=== PATIENT | male | born 1970 | race Caucasian/White ===

== ENCOUNTER 2023-09-20 01:09 | Day surgery (SDC) | payer BC, SELFPAY ==
[2023-09-04 15:11] VITALS: BMI 25.8
[2023-09-20 08:54] VITALS: BP 113/88; PULSE 101; RESP 20; TEMP 36.5; O2SAT 100; BMI 25.5
[2023-09-20] MEDS: LACTATED RINGERS 1,000 ML 150 ML IV CONT (08:58)
--- NOTE | 2023-09-20 09:05 | P.PNAN_ITS ---
Anes - Initial Pre Proc Eval Procedure: Operation Date: 09/20/23 10:00 Proposed Procedures p Colonoscopy - Gabriel Butt MD Date/Time: 09/20/23 09:05 Surgeon: Gabriel Butt MD Pre Op Diagnosis: fam hx malignant neoplasm of digestive organs Patient Data Age: 52 Gender: M Height: 1.8 m Weight: 83.1 kg Last Vital Signs Temp 97.7 F 09/20/23 08:54 Pulse 101 H 09/20/23 08:54 Resp 20 09/20/23 08:54 BP 113/88 09/20/23 08:54 Pulse Ox 100 09/20/23 08:54 O2 Del Method Room Air 09/20/23 08:54 Allergies Allergy/AdvReac Type Severity Reaction Status Date / Time No Known Allergies Allergy Verified 09/20/23 08:52 Home Medications Medication Instructions Recorded Confirmed Type rosuvastatin 10 mg tablet 10 mg PO DAILY 09/04/23 09/20/23 History thyroid (pork) 15 mg tablet 15 mg PO DAILY 09/04/23 09/20/23 History ([place] Thyroid) Patient hx anesthesia problems: none Family hx anesthesia problems: none Results Review: All pre-operative results and documents have been reviewed as part of the pre- operative evaluation. [facility] Social History Social History Smoking status: Never smoker Alcohol intake: never Substance use: never Substance use type: does not use Living arrangements: with family Spiritual care concerns: No Anes - Eval Final PreProcedure Day of Procedure 09/20/23 09:05 Patient weight: normal Heart: regular rate and rhythm Lungs: clear to auscultation Airway: Mallampati scale class II Neurological: alert and oriented Last oral intake: >/= 8 hours ASA classification: II Emergent: no Anesthetic plan: proceed Anesthesia type and monitoring: general GIVS and standard monitoring Results Review: All pre-operative results and documents have been reviewed as part of the pre- operative evaluation. Informed Consent: The patient's anesthetic plan and its attendant risks and benefits were discussed with the patient/family/POA. Questions were solicited and answers provided to the satisfaction of the patient/family/POA.
--- NOTE | 2023-09-20 09:28 | PM.HPGS ---
History of Present Illness History of Present Illness Consent: Risks, benefits, and alternatives have been discussed and questions answered. Patient agrees to proceed with procedure. Chief complaint: fam hx malignant neoplasm of digestive organs Narrative: Marcelo Michelle is a 52 year old male with colon polyp 5 years ago, mother also had colon cancer Review of Systems Review of Systems: All systems reviewed & are unremarkable except as noted in HPI and below PMFSH Past Medical History Medical History (Updated 09/20/23 @ 09:29 by Gabriel Butt MD) Family history of colon cancer in mother Social History Social History Smoking status: Never smoker Alcohol intake: never Substance use: never Substance use type: does not use Living arrangements: with family Spiritual care concerns: No Meds Home Medications and Allergies Home Medications Medication Instructions Recorded Confirmed Type rosuvastatin 10 mg tablet 10 mg PO DAILY 09/04/23 09/20/23 History thyroid (pork) 15 mg tablet 15 mg PO DAILY 09/04/23 09/20/23 History ([place] Thyroid) Allergies Allergy/AdvReac Type Severity Reaction Status Date / Time No Known Allergies Allergy Verified 09/20/23 08:52 Vital Signs Vital Signs - 24 hr 09/20/23 08:54 Temperature 97.7 F Pulse Rate 101 H Respiratory Rate 20 Blood Pressure 113/88 Pulse Oximetry 100 Oxygen Delivery Room Air Exam Const: General: comfortable and no acute distress HENMT: Face/Nose/Sinus: Normal nares present Eyes: General: appearance normal, both eyes and all related structures Neck: Neck: no JVD Resp: Auscultation: clear to auscultation bilaterally Cardio: Rate: regular rate Rhythm: regular rhythm GI: Inspection: non-distended GI Palp: Yes Soft to palpation Skin: General skin exam: normal color Neuro: General: gait normal Speech: normal speech Extrem: General: normal to inspection Psych: Mental Status: mental status grossly normal Assessment and Plan Assessment and plan (1) Family history of colon cancer in mother: Code(s): Z80.0 - Family history of malignant neoplasm of digestive organs Status: Acute Assessment and Plan: colonoscopy
[2023-09-20 09:46] VITALS: BP 92/63; PULSE 90; RESP 20; O2SAT 95
[2023-09-20 09:56] VITALS: BP 105/73; PULSE 86; RESP 20; O2SAT 100
[2023-09-20 10:06] VITALS: BP 106/78; PULSE 82; RESP 20; O2SAT 98
== END 2023-09-20 10:12 | disposition home or self-care (01) ==
PROVIDERS: PCP Physician Assistant; Visit Provider Internal Medicine Gastroenterology
PROC: 0DJD8ZZ Inspection of Lower Intestinal Tract, Via Natural or Artificial Opening Endoscopic (ICD-10-PCS; CPT 45378; principal; 2023-09-20 10:00)
DX: Z12.11 Encounter for screening for malignant neoplasm of colon (principal); D12.3 Benign neoplasm of transverse colon; D17.5 Benign lipomatous neoplasm of intra-abdominal organs; K64.8 Other hemorrhoids; Z80.0 Family history of malignant neoplasm of digestive organs
CPT/HCPCS: 45385; 88305; J2704; J7120

== ENCOUNTER 2024-08-04 14:19 | Outpatient (CLI) | payer BC, SELFPAY | END 2024-08-04 14:20 | disposition home or self-care (01) | PROVIDERS: PCP Physician Assistant; Visit Provider Physician Assistant | DX: R05.9 Cough, unspecified (principal) | CPT/HCPCS: 71046 ==